=== PATIENT | male | born 1990 | race Caucasian/White ===

== ENCOUNTER 2024-05-01 18:48 | Emergency (ER) | payer SELFPAY ==
[~2024-05-01] VITALS: Ht 175.3 cm; Wt 94.7 kg
[2024-05-01] MEDS ORDERED: IBUP200C90 PO (18:57)
[2024-05-01 20:51] VITALS: BP 139/74; TEMP 99; O2SAT 99
== END 2024-05-01 22:14 | disposition left against medical advice (07) ==
LOC: M ED 18:48
DX: Z53.21 Procedure and treatment not carried out due to patient leaving prior to being seen by health care provider (principal)

== ENCOUNTER → 2025-03-22 | Outpatient (REF) | payer OTHER ==
[~2025-03-22] MED LIST: IBUP200C90 PO
== END ==
LOC: M LAB REF 17:14
PROVIDERS: ATTEND Physician Assistant
DX: R05.1 Acute cough (principal)

== ENCOUNTER 2025-06-16 09:49 | Emergency (ER) | payer OTHER ==
[~2025-06-16] VITALS: Ht 175.3 cm; Wt 88.0 kg
[2025-06-16] MEDS ORDERED: BUDE10.22 (10:00)
[2025-06-16] MEDS ORDERED: GUAN1TA (10:00)
[2025-06-16] MEDS ORDERED: ALBU8.5H (10:00)
[2025-06-16] MEDS ORDERED: LAMO-18 (10:00)
[2025-06-16] MEDS ORDERED: PRED20TA PO (10:46)
[2025-06-16] MEDS ORDERED: VENTAER INH (10:47)
[2025-06-16 11:07] VITALS: BP 119/71; TEMP 97.9; O2SAT 98
== END 2025-06-16 11:08 | disposition home or self-care (01) ==
LOC: M ED 09:49
DX: J45.901 Unspecified asthma with (acute) exacerbation (principal)

== ENCOUNTER 2025-06-21 14:24 | Emergency (ER) | payer OTHER ==
[~2025-06-21] VITALS: Ht 175.3 cm; Wt 88.6 kg
[~2025-06-21 14:24] MED LIST changes: +ALBU8.5H; +BUDE10.22; +GUAN1TA; +LAMO-18; +PRED20TA PO; +VENTAER INH
[2025-06-21 14:28] VITALS: BP 116/79; O2SAT 98
[2025-06-21 14:32] VITALS: TEMP 97.9
[2025-06-21] MEDS ORDERED: ACET-683 PO (14:37)
== END 2025-06-21 16:14 | disposition left against medical advice (07) ==
LOC: M ED 14:24
DX: Z53.21 Procedure and treatment not carried out due to patient leaving prior to being seen by health care provider (principal)

== ENCOUNTER 2025-07-06 10:28 | Emergency (ER) | payer OTHER ==
[~2025-07-06] VITALS: Ht 175.3 cm; Wt 90.1 kg
[~2025-07-06 10:28] MED LIST changes: +ACET-683 PO
[2025-07-06 10:30] VITALS: BP 145/78; TEMP 98.2; O2SAT 98
== END 2025-07-06 12:17 | disposition home or self-care (01) ==
LOC: M ED 10:28
DX: J45.909 Unspecified asthma, uncomplicated (principal); F17.200 Nicotine dependence, unspecified, uncomplicated; Z79.899 Other long term (current) drug therapy

== ENCOUNTER → 2025-10-08 | Outpatient (REF) | payer OTHER | LOC: M LAB REF 17:28 | PROVIDERS: ATTEND Nurse Practitioner Family | DX: J20.9 Acute bronchitis, unspecified (principal) ==